=== PATIENT | female | born 1975 | race Caucasian/White ===

== ENCOUNTER 2016-04-08 08:29 | Inpatient (IN) | payer MEDICAID, OTHER ==
[2016-04-08] MEDS ORDERED: Oxytocin in LR* 20 UNITS/1,000 ML BAG IVPB ONE (10:18)
[2016-04-08 10:28] LABS: Hematocrit 38 % (35-47); Hemoglobin 12.6 g/dl (12.0-16.0); Mean Corpuscular HGB Conc 34 g/dl (31-36); Mean Corpuscular Hemoglobin 32 pg (27-31); Mean Corpuscular Volume 96 fL (80-97); Mean Platelet Volume 7 um3 (7.4-10.4); Red Blood Count 3.92 10^6/ul (4.0-5.4); Red Cell Distribution Width 13 % (10.5-15); White Blood Count 11.7 10^3/ul (3.5-10.8)
[2016-04-08] MEDS ORDERED: Oxytocin in LR* 20 UNITS/1,000 ML BAG IVPB SCH (11:00)
[2016-04-08] MEDS ORDERED: OBEPIDURAL* 0 ML ONE (16:06)
[2016-04-08] MEDS ORDERED: Phenylephrine IV* 40 MCG/ML 10 ML SYRINGE IV PUSH PRN ×2 (16:43)
[2016-04-08] MEDS ORDERED: Famotidine TAB* 20 MG PO PRN (16:43)
[2016-04-08] MEDS ORDERED: Sodium Citrate/Citric Acid* 15 ML UDC PO PRN (16:43)
[2016-04-08] MEDS ORDERED: OBEPIDURAL* 250 ML EPIDURAL SCH (17:00)
[2016-04-08] MEDS ORDERED: Mineral Oil Sterile, TOPICAL* 25 ML BTL ONE (19:39)
[2016-04-09] MEDS ORDERED: Witch Hazel PAD* JAR TOPICAL PRN (01:27)
[2016-04-09] MEDS ORDERED: Dibucaine 1% 28.35 GM TUBE PR PRN (01:27)
[2016-04-09] MEDS ORDERED: Acetaminophen TAB* 325 MG PO PRN (01:27)
[2016-04-09] MEDS ORDERED: oxyCODONE/Acetamin 5/325 MG* TAB PO PRN (01:27)
[2016-04-09] MEDS ORDERED: Oxytocin in LR* 20 UNITS/1,000 ML BAG IVPB SCH (02:00)
[2016-04-09] MEDS: Ibuprofen TAB* 600 MG PO PRN ×4 (03:07→21:16)
[2016-04-09] MEDS: Docusate CAP* 100 MG PO SCH ×3 (08:16→21:18)
[2016-04-09] MEDS ORDERED: Phenylephrine IV* 40 MCG/ML 10 ML SYRINGE ONE (13:01)
[2016-04-10] MEDS: Ibuprofen TAB* 600 MG PO PRN ×2 (04:56→10:39)
[2016-04-10 07:05] LABS: Hematocrit 30 % (35-47); Hemoglobin 9.8 g/dl (12.0-16.0); Mean Corpuscular HGB Conc 33 g/dl (31-36); Mean Corpuscular Hemoglobin 32 pg (27-31); Mean Corpuscular Volume 97 fL (80-97); Mean Platelet Volume 7 um3 (7.4-10.4); Red Blood Count 3.05 10^6/ul (4.0-5.4); Red Cell Distribution Width 14 % (10.5-15); White Blood Count 11.2 10^3/ul (3.5-10.8)
[2016-04-10] MEDS: Docusate CAP* 100 MG PO SCH (08:43)
[2016-04-10 08:54] VITALS: BP 117/64
[2016-04-10] MEDS ORDERED: Ferrous Gluconate TAB* 324 MG TAB PO SCH (09:00)
== END 2016-04-10 13:17 | disposition home or self-care (01) | DRG 560 ==
LOC: MCHOBOUT 08:29 → MCHOB 09:23
PROVIDERS: ADMIT Nurse Practitioner; ATTEND Midwife
PROC: 10E0XZZ Delivery of Products of Conception, External Approach (ICD-10-PCS; principal; 2016-04-09)
PROC: 10907ZC Drainage of Amniotic Fluid, Therapeutic from Products of Conception, Via Natural or Artificial Opening (ICD-10-PCS; 2016-04-09)
PROC: 3E033VJ Introduction of Other Hormone into Peripheral Vein, Percutaneous Approach (ICD-10-PCS; 2016-04-09)
DX: O43.193 Other malformation of placenta, third trimester (principal); O09.523 Supervision of elderly multigravida, third trimester; O70.0 First degree perineal laceration during delivery; Z3A.39 39 weeks gestation of pregnancy; Z37.0 Single live birth
CPT/HCPCS: 36415; 81002; 85025; 86850; 86900; 86901; A9270-GY

== ENCOUNTER 2019-01-17 20:51 | Emergency (ER) | payer OTHER ==
[2019-01-17 21:15] VITALS: BP 116/81
--- NOTE | 2019-01-17 21:20 | UC ---
Skin Complaint HPI - HPI Summary HPI Summary: 43 y/o female presents to the urgent care c/o b/l hands itchy rash for the past 2 weeks. Pt reports rash is now also developing on the RT lower leg. Rash has worsen this past week w/ a yellowish crusting on top. Rash has a burning sensation and pain is 2/10. Pt has applied OTc product like E-oil. herbal eczema , olive oil w/o any improvement. Pt states it is worse at night time and after she washes her hand. Pt denies using new hand lotions or detergents. However, rash started like discrete papules and now has worse. Pt deneis fever, Hx of eczema or psoriasis, SOB, chest pain, dizziness, abdominal pain, N/V/D. - History of Current Complaint Chief Complaint: UCSkin Time Seen by Provider: 01/17/19 21:19 Stated Complaint: RASH Hx Obtained From: Patient Hx Last Menstrual Period: now ?: No Onset/Duration: Gradual Onset, Lasting Weeks - 2 weeks, Still Present, Worse Since - 1 week Skin Exposure Onset/Duration: Weeks Ago - 2 weeks Timing: Constant Onset Severity: Mild Current Severity: Moderate Pain Intensity: 2 Pain Scale Used: 0-10 Numeric Location: Discrete - B/l hands and Rt lower leg Character: Pruritus, Redness Aggravating Factor(s): Touch Alleviating Factor(s): OTC Creams/Salves Associated Signs & Symptoms: Positive: Rash - B/L hand w/ ithcy rash and a burning sensation, Tenderness. Negative: Drainage Related History: Possible Reaction to: Environmental Exposure - Allergy/Home Medications Allergies/Adverse Reactions: Allergies Allergy/AdvReac Type Severity Reaction Status Date / Time No Known Allergies Allergy Verified 01/17/19 21:15 Home Medications: Home Medications Ibuprofen 200 mg PO Q4H 01/17/19 [History Confirmed 01/17/19] Phentermine HCl 30 mg PO DAILY 01/17/19 [History Confirmed 01/17/19] Vit No.129/Iron/Folic [ One Daily Tablet] 1 tab PO BID [History Confirmed 01/17/19] PMH/Surg Hx/FS Hx/Imm Hx Previously Healthy: Yes - Pt denies PMHX - Surgical History Surgical History: Yes Surgery Procedure, Year, and Place: JO BREAST IMPLANTS 1996, [place]. D&C - Family History Known Family History: Positive: Cardiac Disease - grandfather CABG, Hypertension , Other - no malignant hyperthermia, no anesthesia reaction, no blood clots - Social History Occupation: Employed Full-time Lives: With Family Alcohol Use: None Substance Use Type: None Smoking Status (MU): Former Smoker Amount Used/How Often: PACK A DAY Have You Smoked in the Last Year: No When Did the Patient Quit Smoking/Using Tobacco: 2010 - Immunization History Most Recent Influenza Vaccination: 12/23/15 Most Recent Tetanus Shot: 02/04 Most Recent Pneumonia Vaccination: none Review of Systems All Other Systems Reviewed And Are Negative: Yes Constitutional: Positive: Negative Skin: Positive: Rash - B/L hand w/ ithcy rash and a burning sensation Eyes: Positive: Negative ENT: Positive: Negative Respiratory: Positive: Negative Cardiovascular: Positive: Negative Gastrointestinal: Positive: Negative Genitourinary: Positive: Negative Motor: Positive: Negative Neurovascular: Positive: Negative Musculoskeletal: Positive: Other: - B/L hand pain Neurological: Positive: Negative Psychological: Positive: Negative Is Patient Immunocompromised?: No Physical Exam - Summary Physical Exam Summary: Vital Signs Reviewed: Yes General: well appearing, well nourished female in no acute apparent pain distress, sitting comfortably on examining table Eye Exam: Normal Eyes: Positive: Conjunctiva Clear - PERRLA< EOMI, fundi grossly normal ENT: Positive: Normal ENT inspection, Hearing grossly normal, Pharynx normal, TMs normal Neck: Positive: Supple, Nontender, No Lymphadenopathy Respiratory: Positive: Chest non-tender, Lungs clear, Normal breath sounds, No respiratory distress Cardiovascular: Positive: RRR, No Murmur, Pulses Normal, Brisk Capillary Refill Abdomen Description: Positive: Nontender, No Organomegaly, Soft. Negative: CVA Tenderness (R), CVA Tenderness (L) Bowel Sounds: Positive: Present Musculoskeletal: Positive: Strength Intact, ROM Intact, No Edema Neurological: Positive: Alert, Muscle Tone Normal Psychological Exam: Normal Skin: Positive: B/L palmar side of hands with an erythematous discrete maculopapular eruption RT>LF w/ some yellowish crusting. similar lesion in the laterasl side of Rt lower leg w/o the crusting. signs of excoriation, mild tenderness to palpation, no discharge observed, no swelling, Triage Information Reviewed: Yes Vital Signs: Initial Vital Signs Temp 98.2 F 01/17/19 21:11 Pulse 74 01/17/19 21:11 Resp 18 01/17/19 21:11 BP 116/81 01/17/19 21:11 Pulse Ox 100 01/17/19 21:11 Course/Dx - Course Course Of Treatment: 43 y/o female presents to the urgent care c/o b/l hands itchy rash for the past 2 weeks. Pt reports rash is now also developing on the RT lower leg. Rash has worsen this past week w/ a yellowish crusting on top. Rash has a burning sensation and pain is 2/10. Pt has applied OTc product like E-oil. herbal eczema , olive oil w/o any improvement. Pt states it is worse at night time and after she washes her hand. Pt denies using new hand lotions or detergents. However, rash started like discrete papules and now has worse. Pt deneis fever, Hx of eczema or psoriasis, SOB, chest pain, dizziness, abdominal pain, N/V/D. Hx obtained. Pt's B/L hand rash is unspecified , probably contact dermatitis w/ co infection. PT given at the clinic Prednisone PO by the nurse. Pt tolerated well medication. Rx Prednisone PO, triamcinolone topical cream, and bactroban. Explained how to apply. Pt advised to take Benadryl PO for pruritus. Also recommended Pt advised if not improvement or worsening of symptoms to f/u with PCP or Financial Examiner DR Corrales. D/C instructions explained.PT understood and agreed withplan of care. - Differential Diagnoses - Skin Complaint Differential Diagnoses: Abscess, Cellulitis, Contact Dermatitis, Local Allergic Reaction, MRSA, Scabies, Tinea, Urticaria - Diagnoses Provider Diagnosis: Contact dermatitis, Rash of hands Discharge ED - Sign-Out/Discharge Documenting (check all that apply): Patient Departure - D/c home All imaging exams completed and their final reports reviewed: No Studies - Discharge Plan Condition: Stable Disposition: HOME Prescriptions: Mupirocin 2% OINT* [Bactroban 2 % Oint*] 1 applic TOPICAL BID #1 tube predniSONE TAB* [Deltasone 20 MG TAB*] 20 mg PO DAILY #8 tab Triamcinolone 0.1% CREAM(NF) [Kenalog Cream 0.1%(NF)] 1 applic TOPICAL ONCE #1 tube Patient Education Materials: Contact Dermatitis (ED) Referrals: Luis Gresham MD [Primary Care Provider] - 3 Days Karen Corrales [Medical Doctor] - 1 Week Additional Instructions: 1-Please apply Mupurocin and Triamcinolone topical cream alternating as directed over affected areas to alleviate your co-infected rash. 2-Take Prednisone PO as directed starting tomorrow. Firs dose given tonight. Also take Benadryl PO as directed to alleviate itchiness. 3-If symptoms do not improve or worsen please f/u with your PCP or Financial Examiner Dr Corrales in 1 week for further evaluation and treatment. - Billing Disposition and Condition Condition: STABLE Disposition: Home - Attestation Statements Provider Attestation: Per institutional requirements, I have reviewed the chart, however, I was not consulted specifically or made aware of this patient by the midlevel provider. I did not personally evaluate, interact with , or disposition this patient.
[2019-01-17] MEDS ORDERED: predniSONE TAB* 20 MG PO ONE (21:53)
== END 2019-01-17 22:20 | disposition home or self-care (01) ==
LOC: UCEAST 20:51
DX: L25.9 Unspecified contact dermatitis, unspecified cause (principal); R21 Rash and other nonspecific skin eruption; M79.642 Pain in left hand; M79.641 Pain in right hand; Z87.891 Personal history of nicotine dependence
CPT/HCPCS: 99212; G0463; J7512